=== PATIENT | male | born 1965 | race Two or more races ===

== ENCOUNTER 2023-11-27 03:34 | Inpatient (IN) | payer BC ==
[~2023-11-27] VITALS: Ht 177.8 cm; Wt 82.6 kg
[2023-11-27] VITALS (8 sets, daily range): BP systolic 97–112; BP diastolic 56–69; PULSE 77–112; RESP 17–19; TEMP 98.3–98.6; O2SAT 93–100
[2023-11-27] MEDS ORDERED: LORazepam 0.5 MG TAB PO PRN (12:30)
[2023-11-27] MEDS ORDERED: ONDANSETRON HCL 4 MG/2 ML VIAL IV PRN (12:45)
[2023-11-27] MEDS ORDERED: ALBUTEROL SULF 2.5 MG/0.5ML(0.5%) NEB SOLN NEB PRN (12:45)
[2023-11-27 13:22] LABS: Basophils # (auto) 0 10 ^3/uL (0-0.2); Eosinophils # (auto) 0.1 10 ^3/uL (0-0.8); Eosinophils % (auto) 1.4 % (0.0-7.0); Lymphocytes # (auto) 1.5 10 ^3/uL (0.4-5.4); Monocytes # (auto) 0.5 10 ^3/uL (0-1.3); Nucleated Red Blood Cells % 0.2 %
[2023-11-27 13:24] LABS: Basophils % (auto) 0.8 % (0.0-2.0); Hematocrit 31.7 % (41.0-53.0); Lymphocytes % (auto) 26.7 % (10.0-50.0); Mean Corpuscular Hemoglobin 38.5 pg (28.0-32.0); Mean Corpuscular Hgb Conc. 34.6 g/dL (32.0-36.0); Mean Corpuscular Volume 111.4 fL (80.0-100.0); Neutrophils # (auto) 3.4 10 ^3/uL (1.6-8.6); Neutrophils % (auto) 62.1 % (37.0-80.0); Red Blood Cells 2.85 10^6/uL (4.5-5.90); Red Cell Distribution Width 13.6 % (11.8-14.3); White Blood Cell 5.5 10^3/uL (4.4-10.8)
[2023-11-27 13:33] LABS: INR 1.62 (0.9-1.15); Partial Thromboplastin Time 36.2 SEC (24.5-34.5); Prothrombin Time 16.5 sec (9.3-11.8)
[2023-11-27 13:48] LABS: Alanine Aminotransferase 55 U/L (7-40); Albumin 2.8 g/dL (3.2-4.8); Alkaline Phosphatase 112 U/L (46-116); Anion Gap 7 (5-15); Aspartate Aminotransferase 202 U/L (13-40); BUN/Creatinine Ratio 10.9 (10.0-20.0); Blood Urea Nitrogen 5 mg/dL (9-23); Calcium 8.4 mg/dL (8.5-10.1); Carbon Dioxide 25 mmol/L (20-30); Chloride 100 mmol/L (98-107); Glucose 88 mg/dL (74-106); Potassium 3.3 mmol/L (3.5-5.1); Sodium 132 mmol/L (136-145); Total Protein 7.1 g/dL (5.7-8.2)
[2023-11-27] MEDS ORDERED: NITROGLYCERIN 0.4 MG SL TAB SL PRN (15:45)
[2023-11-27] MEDS ORDERED: MORPHINE SULFATE INJ 2 MG/ml SYRG IV PRN (15:45)
[2023-11-27] MEDS: ASPirin 81 mg TAB PO ONE (17:40)
[2023-11-27] MEDS: POTASSIUM CHL 20 Meq TABLET PO ONE (17:40)
[2023-11-27] MEDS: FOLIC ACID 1 MG TAB PO ONE (17:40)
[2023-11-27] MEDS: THIAMINE 100mg/ml INJ (200mg/2ml VIAL) IV ONE (17:41)
[2023-11-27] MEDS: LORazepam 2MG/ML-1ML VIAL IV ONE (17:41)
[2023-11-27] MEDS: NICOTINE 21MG/24 HR TOPICAL PATCH TD ONE (17:55)
[2023-11-27] MEDS: SODIUM CHLORIDE 0.9% 1,000 ML IV SCH (18:31)
[2023-11-27] MEDS: FOLIC ACID 1 MG, MAGNESIUM SULF SDV 50% 8 MEQ, MULTIPLE VITAMIN 10 ML, THIAMINE INJ 100... INJ SCH (20:36)
[2023-11-27] MEDS: ATORVASTATIN 20 MG TAB PO SCH (21:59)
[2023-11-27] MEDS ORDERED: ENOXAPARIN SOD 60 MG/0.6 ML SYRINGE SC SCH (22:00)
[2023-11-28] VITALS (11 sets, daily range): BP systolic 97–125; BP diastolic 61–79; PULSE 65–116; RESP 16–21; TEMP 98.1–98.7; O2SAT 93–100
[2023-11-28] MEDS: chlordiazePOXIDE HCL 5 MG CAP PO PRN (05:05)
[2023-11-28 06:32] LABS: Eosinophils # (auto) 0.1 10 ^3/uL (0-0.8); Eosinophils % (auto) 2.7 % (0.0-7.0); Hematocrit 29.3 % (41.0-53.0); Hemoglobin 9.9 g/dL (13.5-17.5); Lymphocytes # (auto) 1.4 10 ^3/uL (0.4-5.4); Lymphocytes % (auto) 28.1 % (10.0-50.0); Monocytes # (auto) 0.6 10 ^3/uL (0-1.3); Red Blood Cells 2.64 10^6/uL (4.5-5.90)
[2023-11-28 06:35] LABS: Basophils # (auto) 0.1 10 ^3/uL (0-0.2); Basophils % (auto) 1.1 % (0.0-2.0); Mean Corpuscular Hemoglobin 37.4 pg (28.0-32.0); Mean Corpuscular Hgb Conc. 33.7 g/dL (32.0-36.0); Mean Corpuscular Volume 111.1 fL (80.0-100.0); Monocytes % (auto) 12.3 % (0.0-12.0); Neutrophils # (auto) 2.8 10 ^3/uL (1.6-8.6); Neutrophils % (auto) 55.8 % (37.0-80.0); Nucleated Red Blood Cells % 0.2 %; Red Cell Distribution Width 13.6 % (11.8-14.3)
[2023-11-28 06:49] LABS: Alanine Aminotransferase 55 U/L (7-40); Albumin 2.4 g/dL (3.2-4.8); Alkaline Phosphatase 95 U/L (46-116); Anion Gap 7 (5-15); Aspartate Aminotransferase 192 U/L (13-40); Calcium 7.9 mg/dL (8.5-10.1); Carbon Dioxide 23 mmol/L (20-30); Chloride 100 mmol/L (98-107); Glucose 98 mg/dL (74-106); Potassium 3.2 mmol/L (3.5-5.1); Sodium 130 mmol/L (136-145)
[2023-11-28 06:52] LABS: BUN/Creatinine Ratio 11.4 (10.0-20.0); Blood Urea Nitrogen < 5 mg/dL (9-23)
[2023-11-28 06:56] LABS: Bilirubin, Total 2.4 mg/dL (0.2-1.0)
[2023-11-28] MEDS ORDERED: ASPirin 81 mg TAB PO SCH (10:00)
[2023-11-28] MEDS: ENOXAPARIN SOD 40 MG/0.4 ML SYRINGE SC SCH (10:00)
[2023-11-28] MEDS ORDERED: MET25T PO (10:32)
[2023-11-28] MEDS ORDERED: ASPI-543 PO (10:32)
[2023-11-28] MEDS ORDERED: FURO40TA4 PO (10:32)
[2023-11-28] MEDS ORDERED: POTA-220 PO (10:32)
[2023-11-28 10:56] LABS: Macrocytosis Marked; Platelet Estimate Decreased
[2023-11-28] MEDS: ADENOSINE 67 MG in GIVE UN-DILUTED 0 ML IV ONE (11:12)
[2023-11-28] MEDS: FOLIC ACID 1 MG TAB PO SCH (12:52)
[2023-11-28] MEDS: MULTIPLE VITAMIN TAB PO SCH (12:52)
[2023-11-28] MEDS: THIAMINE 100mg/ml INJ (200mg/2ml VIAL) IV SCH (12:52)
[2023-11-28] MEDS: NICOTINE 21MG/24 HR TOPICAL PATCH TD SCH (12:55)
[2023-11-28] MEDS: MAGNESIUM SULFATE 1GM/100ML 100 ML IV SCH (13:32)
[2023-11-28] MEDS: POTASSIUM CHL 20 Meq TABLET PO ONE (13:32)
[2023-11-28] MEDS: MAGNESIUM OXIDE 400 MG TAB PO SCH (21:26)
[2023-11-28] MEDS: MORPHINE SULFATE INJ 2 MG/ml SYRG IV PRN (21:49)
[2023-11-29 01:00] VITALS: BP 112/71; PULSE 76; RESP 19; TEMP 97.9; O2SAT 94
[2023-11-29 05:00] VITALS: BP 110/76; PULSE 86; RESP 18; TEMP 98.3; O2SAT 97
[2023-11-29 06:44] LABS: Basophils # (auto) 0 10 ^3/uL (0-0.2); Eosinophils # (auto) 0.1 10 ^3/uL (0-0.8); Hemoglobin 9.7 g/dL (13.5-17.5); Lymphocytes # (auto) 1.5 10 ^3/uL (0.4-5.4); Monocytes # (auto) 0.8 10 ^3/uL (0-1.3); Neutrophils # (auto) 2.6 10 ^3/uL (1.6-8.6); Red Cell Distribution Width 13.8 % (11.8-14.3)
[2023-11-29 06:46] LABS: Eosinophils % (auto) 1.8 % (0.0-7.0); Hematocrit 28.8 % (41.0-53.0); Lymphocytes % (auto) 29.4 % (10.0-50.0); Mean Corpuscular Hemoglobin 37.5 pg (28.0-32.0); Mean Corpuscular Hgb Conc. 33.7 g/dL (32.0-36.0); Mean Corpuscular Volume 111.2 fL (80.0-100.0); Monocytes % (auto) 15.5 % (0.0-12.0); Neutrophils % (auto) 52.3 % (37.0-80.0); Nucleated Red Blood Cells % 0.2 %; Red Blood Cells 2.59 10^6/uL (4.5-5.90)
[2023-11-29 06:57] VITALS: O2SAT 97
[2023-11-29 07:12] LABS: Alanine Aminotransferase 59 U/L (7-40); Albumin 2.5 g/dL (3.2-4.8); Alkaline Phosphatase 99 U/L (46-116); Anion Gap 5 (5-15); Aspartate Aminotransferase 175 U/L (13-40); Calcium 7.9 mg/dL (8.5-10.1); Carbon Dioxide 26 mmol/L (20-30); Chloride 101 mmol/L (98-107); Cholesterol 61 mg/dL (< 200); Glucose 100 mg/dL (74-106); HDL Cholesterol 10 mg/dL (40-59); LDL Cholesterol 44 mg/dL (< 100); Potassium 3.7 mmol/L (3.5-5.1); Sodium 132 mmol/L (136-145); Triglycerides 69 mg/dL (< 150)
[2023-11-29 07:13] LABS: BUN/Creatinine Ratio 10.6 (10.0-20.0); Blood Urea Nitrogen < 5 mg/dL (9-23); Total Protein 6.4 g/dL (5.7-8.2)
[2023-11-29 07:48] LABS: Lipase 44 U/L (12-53)
[2023-11-29 08:00] VITALS: PULSE 79
[2023-11-29] MEDS ORDERED: GABA-1250 PO (10:17)
[2023-11-29] MEDS ORDERED: NIC21P TOP (10:17)
[2023-11-29] MEDS ORDERED: PANT40T PO (10:17)
[2023-11-29 11:37] VITALS: TEMP 36.8
== END 2023-11-29 12:15 | disposition home health service (06) | DRG 281 ==
LOC: TELE-WESTW 07:59
PROVIDERS: ADMIT Specialist; ATTEND Internal Medicine
DX: R07.89 Other chest pain (principal); I21.A1 Myocardial infarction type 2; E87.1 Hypo-osmolality and hyponatremia; F10.10 Alcohol abuse, uncomplicated; D69.6 Thrombocytopenia, unspecified; K74.60 Unspecified cirrhosis of liver; F17.210 Nicotine dependence, cigarettes, uncomplicated; Y90.9 Presence of alcohol in blood, level not specified; I25.10 Atherosclerotic heart disease of native coronary artery without angina pectoris; Z82.49 Family history of ischemic heart disease and other diseases of the circulatory system
CPT/HCPCS: 36415; 70450; 71045; 74176; 76705; 78452; 80053; 80061; 83690; 84484; 85025; 85610; 85730; 93017; 93306; 93886; G0378; J0153